=== PATIENT | female | born 1945 | race Caucasian/White ===

== ENCOUNTER → 2016-06-23 | Outpatient (CLI) | payer MEDICARE, BC ==
[2016-06-23 10:36] LABS: HEMOGLOBIN 10.4 gm/dl (12.3-15.3); RED BLOOD COUNT 3.31 M/UL (4.00-5.10); WHITE BLOOD COUNT 5.6 K/UL (4.5-11.0)
== END ==
LOC: LAB 09:05
PROVIDERS: Internal Medicine
DX: Z02.89 Encounter for other administrative examinations (principal); E11.9 Type 2 diabetes mellitus without complications; E78.5 Hyperlipidemia, unspecified; I10 Essential (primary) hypertension; Z79.899 Other long term (current) drug therapy
CPT/HCPCS: 36415; 80053; 80061; 82043; 82570; 83036; 84439; 84443; 85025

== ENCOUNTER 2016-07-26 18:08 | Emergency (ER) | payer MEDICARE, BC | END 2016-07-26 22:12 | disposition home or self-care (01) | LOC: ER1 18:08 | DX: S42.292A Other displaced fracture of upper end of left humerus, initial encounter for closed fracture (principal); S42.212A Unspecified displaced fracture of surgical neck of left humerus, initial encounter for closed fracture; W19.XXXA Unspecified fall, initial encounter; Y92.009 Unspecified place in unspecified non-institutional (private) residence as the place of occurrence of the external cause | CPT/HCPCS: 71010; 73030; 73060; 73200; 96372; 99283; J2270 ==

== ENCOUNTER 2020-04-09 09:25 | Outpatient (CLI) | payer MEDICARE, BC ==
[~2020-04-09] VITALS: Ht 162.6 cm; Wt 90.7 kg
[2020-04-09] MEDS ORDERED: ELIQUIS5 MG PO (10:54)
[2020-04-09] MEDS ORDERED: METOPROLOL SUC100 MG PO (10:54)
[2020-04-09] MEDS ORDERED: HYDRALAZINE HC100 MG PO (10:55)
[2020-04-09] MEDS ORDERED: PREDNISONE 1 MG1 MG PO (10:56)
[2020-04-09] MEDS ORDERED: METHOTREXATE T2.5 MG PO (10:56)
[2020-04-09] MEDS ORDERED: LOSARTAN POTAS100 MG PO (10:57)
[2020-04-09] MEDS ORDERED: NIFEDIPINE ER60 MG PO (11:01)
[2020-04-09] MEDS ORDERED: FERROUS SULFAT325 MG PO (11:01)
[2020-04-09] MEDS ORDERED: FOLIC ACID 1 MG1 MG PO (11:02)
[2020-04-09] MEDS ORDERED: FISH OIL 1,2001 EAC2 PO (11:02)
[2020-04-09] MEDS ORDERED: HUMALOG100 UNIT/3 SQ (11:04)
[2020-04-09] MEDS ORDERED: LANTUS100 UNIT/1 SQ (11:05)
[2020-04-09] MEDS ORDERED: VITAMIN B-121000 MCG PO (11:06)
[2020-04-09] MEDS ORDERED: OMEPRAZOLE20 MG PO (11:06)
[2020-04-09] MEDS ORDERED: VITAMIN D 40400 UNIT PO (11:08)
[2020-04-09] MEDS ORDERED: VITAMIN C500 M4 PO (11:08)
== END 2020-04-10 11:03 | disposition home or self-care (01) ==
LOC: CATH 09:25 → PROG CARE 14:59 → CATH 04-10 11:03
DX: I48.3 Typical atrial flutter (principal); I42.0 Dilated cardiomyopathy; D86.0 Sarcoidosis of lung; I12.9 Hypertensive chronic kidney disease with stage 1 through stage 4 chronic kidney disease, or unspecified chronic kidney disease; E11.22 Type 2 diabetes mellitus with diabetic chronic kidney disease; N18.9 Chronic kidney disease, unspecified; E11.3599 Type 2 diabetes mellitus with proliferative diabetic retinopathy without macular edema, unspecified eye; I45.2 Bifascicular block; M81.0 Age-related osteoporosis without current pathological fracture; K21.9 Gastro-esophageal reflux disease without esophagitis; M06.9 Rheumatoid arthritis, unspecified; Z82.49 Family history of ischemic heart disease and other diseases of the circulatory system; Z83.3 Family history of diabetes mellitus; Z88.1 Allergy status to other antibiotic agents; Z88.8 Allergy status to other drugs, medicaments and biological substances; Z79.01 Long term (current) use of anticoagulants; Z79.4 Long term (current) use of insulin; Z79.899 Other long term (current) drug therapy
CPT/HCPCS: 71045; 82962; 93005; 93609; 93621; 99152; 99153; C1730; C1733; C1766; J1644; J2250; J3010; J7040; J8610

== ENCOUNTER → 2020-07-23 | Outpatient (CLI) | payer MEDICARE, BC ==
[~2020-07-23] MED LIST: ELIQUIS5 MG PO; FERROUS SULFAT325 MG PO; FISH OIL 1,2001 EAC2 PO; FOLIC ACID 1 MG1 MG PO; HUMALOG100 UNIT/3 SQ; HYDRALAZINE HC100 MG PO; LANTUS100 UNIT/1 SQ; LOSARTAN POTAS100 MG PO; METHOTREXATE T2.5 MG PO; METOPROLOL SUC100 MG PO; NIFEDIPINE ER60 MG PO; OMEPRAZOLE20 MG PO; PREDNISONE 1 MG1 MG PO; VITAMIN B-121000 MCG PO; VITAMIN C500 M4 PO; VITAMIN D 40400 UNIT PO
[2020-07-23 10:23] LABS: RED BLOOD COUNT 3.38 M/UL (4.00-5.10); WHITE BLOOD COUNT 7.2 K/UL (4.5-11.0)
== END ==
LOC: LAB 08:55
PROVIDERS: Nurse Practitioner
DX: N39.0 Urinary tract infection, site not specified (principal); E55.9 Vitamin D deficiency, unspecified; I12.9 Hypertensive chronic kidney disease with stage 1 through stage 4 chronic kidney disease, or unspecified chronic kidney disease; E11.22 Type 2 diabetes mellitus with diabetic chronic kidney disease; N18.30 Chronic kidney disease, stage 3 unspecified; E11.65 Type 2 diabetes mellitus with hyperglycemia; R53.83 Other fatigue
CPT/HCPCS: 36415; 80053; 80061; 81001; 82570; 82652; 83036; 83970; 84100; 84156; 84439; 84443; 85025; 87086

== ENCOUNTER → 2020-10-17 | Outpatient (CLI) | payer MEDICARE, BC | LOC: HEART 5 09:59 | DX: I42.0 Dilated cardiomyopathy (principal); I27.20 Pulmonary hypertension, unspecified; I08.1 Rheumatic disorders of both mitral and tricuspid valves | CPT/HCPCS: 93306 ==

== ENCOUNTER 2020-11-20 01:57 | Emergency (ER) | payer MEDICARE, BC ==
[2020-11-20 02:43] LABS: HEMOGLOBIN 10.4 gm/dl (12.3-15.3); RED BLOOD COUNT 3.23 M/UL (4.00-5.10); WHITE BLOOD COUNT 8.9 K/UL (4.5-11.0)
== END 2020-11-20 06:00 | disposition short-term general hospital (02) ==
LOC: ER1 01:57
PROVIDERS: Emergency Medicine
DX: I63.511 Cerebral infarction due to unspecified occlusion or stenosis of right middle cerebral artery (principal); R29.708 NIHSS score 8; Z20.822 Contact with and (suspected) exposure to COVID-19; Z88.0 Allergy status to penicillin
CPT/HCPCS: 70450; 70496; 70498; 71045; 80053; 82550; 82553; 82962; 83690; 83735; 83874; 84484; 85025; 85610; 85730; 93005; 99285; J2997; Q9967; U0002

== ENCOUNTER 2021-01-18 10:08 | Emergency (ER) | payer MEDICARE, BC ==
[~2021-01-18] VITALS: Ht 162.6 cm; Wt 86.2 kg
== END 2021-01-18 13:08 | disposition home or self-care (01) ==
LOC: ER1 10:08
DX: U07.1 COVID-19 (principal); Z23 Encounter for immunization; I13.0 Hypertensive heart and chronic kidney disease with heart failure and stage 1 through stage 4 chronic kidney disease, or unspecified chronic kidney disease; N18.9 Chronic kidney disease, unspecified; I50.9 Heart failure, unspecified; E11.22 Type 2 diabetes mellitus with diabetic chronic kidney disease; I48.91 Unspecified atrial fibrillation; Z90.49 Acquired absence of other specified parts of digestive tract
CPT/HCPCS: 99283; M0243

== ENCOUNTER 2021-07-16 14:06 | Inpatient (IN) | payer MEDICARE, BC ==
[~2021-07-16] VITALS: Ht 162.6 cm; Wt 86.2 kg
[~2021-07-16 14:06] MED LIST changes: +ELIQUIS2.5 MG PO; -ELIQUIS5 MG PO; +FISH OIL 1,0001 EAC1 PO; -FISH OIL 1,2001 EAC2 PO; +HUMALOG 200 UNIT/ML SQ; -HUMALOG100 UNIT/3 SQ; -LOSARTAN POTAS100 MG PO; +LOSARTAN POTASS50 MG PO; -METOPROLOL SUC100 MG PO; +METOPROLOL SUCC50 MG PO
[2021-07-16 15:50] LABS: HEMOGLOBIN 8.3 gm/dl (12.3-15.3); RED BLOOD COUNT 2.49 M/UL (4.00-5.10)
[2021-07-16] MEDS ORDERED: SPIRONOLACTONE25 MG PO (17:45)
[2021-07-16] MEDS ORDERED: VITAMIN D21250 MCG PO (17:46)
[2021-07-16] MEDS ORDERED: AMLODIPINE BESY10 MG PO (17:48)
[2021-07-16] MEDS ORDERED: MYCOSTATIN OINT15 GM TOP (17:49)
[2021-07-16] MEDS ORDERED: ATORVASTATIN CA80 MG PO (17:49)
[2021-07-16] MEDS ORDERED: ISOSORBIDE MONO60 MG PO (17:53)
[2021-07-16] MEDS ORDERED: SODIUM BICARBO650 MG PO (17:54)
[2021-07-16] MEDS ORDERED: BUMETANIDE1 MG PO (17:55)
[2021-07-16] MEDS ORDERED: NYSTATIN60 GM TOP (17:57)
[2021-07-17 03:10] LABS: HEMOGLOBIN 7.4 gm/dl (12.3-15.3); RED BLOOD COUNT 2.22 M/UL (4.00-5.10); WHITE BLOOD COUNT 4.6 K/UL (4.5-11.0)
--- NOTE | 2021-07-17 09:42 | NUR ---
CALLED CONSULT FOR DR ROBBINS TO HIS OFFICE AND LEFT MESSAGE.
[2021-07-18 01:46] LABS: HEMOGLOBIN 7.5 gm/dl (12.3-15.3); RED BLOOD COUNT 2.22 M/UL (4.00-5.10)
[2021-07-18 01:52] LABS: WHITE BLOOD COUNT 7.3 K/UL (4.5-11.0)
[2021-07-18] MEDS ORDERED: METOPROLOL SUCC25 MG PO (10:45)
== END 2021-07-18 12:24 | disposition home or self-care (01) | DRG 309 ==
LOC: ER1 14:06 → PROG CARE 16:41 → CDU 16:41 → PROG CARE 18:12
PROVIDERS: Physician Assistant; Preventive Medicine Occupational Medicine; ADMIT Internal Medicine
PROC: B24BZZZ Ultrasonography of Heart with Aorta (ICD-10-PCS; principal; 2021-07-17)
DX: R00.1 Bradycardia, unspecified (principal); I13.0 Hypertensive heart and chronic kidney disease with heart failure and stage 1 through stage 4 chronic kidney disease, or unspecified chronic kidney disease; N18.4 Chronic kidney disease, stage 4 (severe); I50.22 Chronic systolic (congestive) heart failure; E87.1 Hypo-osmolality and hyponatremia; N17.9 Acute kidney failure, unspecified; D50.9 Iron deficiency anemia, unspecified; I27.20 Pulmonary hypertension, unspecified; I08.1 Rheumatic disorders of both mitral and tricuspid valves; E11.22 Type 2 diabetes mellitus with diabetic chronic kidney disease; D86.9 Sarcoidosis, unspecified; E87.5 Hyperkalemia; E66.01 Morbid (severe) obesity due to excess calories; D75.89 Other specified diseases of blood and blood-forming organs; K21.9 Gastro-esophageal reflux disease without esophagitis; Z20.822 Contact with and (suspected) exposure to COVID-19; I42.0 Dilated cardiomyopathy; E83.42 Hypomagnesemia; D63.1 Anemia in chronic kidney disease; R80.9 Proteinuria, unspecified; I48.0 Paroxysmal atrial fibrillation; Z86.73 Personal history of transient ischemic attack (TIA), and cerebral infarction without residual deficits; Z79.899 Other long term (current) drug therapy; Z98.51 Tubal ligation status; Z90.49 Acquired absence of other specified parts of digestive tract; Z79.01 Long term (current) use of anticoagulants; Z98.41 Cataract extraction status, right eye; Z88.0 Allergy status to penicillin; Z88.8 Allergy status to other drugs, medicaments and biological substances; Z80.1 Family history of malignant neoplasm of trachea, bronchus and lung; Z82.49 Family history of ischemic heart disease and other diseases of the circulatory system; Z80.41 Family history of malignant neoplasm of ovary; Z79.82 Long term (current) use of aspirin; Z79.4 Long term (current) use of insulin; Z68.32 Body mass index [BMI] 32.0-32.9, adult; Z79.52 Long term (current) use of systemic steroids
CPT/HCPCS: ECHO; 36415; 80048; 80053; 81001; 82436; 82533; 82550; 82553; 82607; 82728; 82746; 82962; 83036; 83540; 83550; 83735; 84100; 84133; 84300; 84439; 84443; 84484; 85025; 93005; 93270; 93306; 96374; 96375; 99285; J1756; J3475; J7030; Q4081; U0002

== ENCOUNTER → 2021-09-29 | Outpatient (CLI) | payer MEDICARE, BC ==
[~2021-09-29] MED LIST changes: +AMLODIPINE BESY10 MG PO; +ATORVASTATIN CA80 MG PO; +BUMETANIDE1 MG PO; +ISOSORBIDE MONO60 MG PO; +METOPROLOL SUCC25 MG PO; +MYCOSTATIN OINT15 GM TOP; +NYSTATIN60 GM TOP; +SODIUM BICARBO650 MG PO; +SPIRONOLACTONE25 MG PO; +VITAMIN D21250 MCG PO
[2021-09-29 10:09] LABS: HEMOGLOBIN 9.2 gm/dl (12.3-15.3); RED BLOOD COUNT 2.83 M/UL (4.00-5.10); WHITE BLOOD COUNT 9.2 K/UL (4.5-11.0)
[2021-09-30 11:14] LABS: CREATININE, URINE 50.8 mg/dL (Not Estab.)
== END ==
LOC: LAB 09:15
PROVIDERS: Internal Medicine Nephrology
DX: N18.9 Chronic kidney disease, unspecified (principal)
CPT/HCPCS: 36415; 80053; 81001; 82043; 82570; 82728; 83540; 83550; 83970; 84100; 84156; 85025